=== PATIENT | male | born 1985 | race African-American/Black ===

== ENCOUNTER 2016-09-18 13:45 | Emergency (ER) | payer OTHER ==
[2016-09-18 13:58] VITALS: BP 140/69; PULSE 66; TEMP 98.1; BMI 27.2
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
== END 2016-09-18 16:29 | disposition home or self-care (01) ==
LOC: JERFT 13:45
PROC: 2W39X1Z Immobilization of Left Upper Extremity using Splint (ICD-10-PCS; principal; 2016-09-18)
DX: S42.342A Displaced spiral fracture of shaft of humerus, left arm, initial encounter for closed fracture (principal); Z87.81 Personal history of (healed) traumatic fracture; Y04.0XXA Assault by unarmed brawl or fight, initial encounter; Y93.89 Activity, other specified; Y92.89 Other specified places as the place of occurrence of the external cause; Y99.8 Other external cause status
CPT/HCPCS: 29105; 73060-TC-LT; 99281-25

== ENCOUNTER 2019-04-25 01:20 | Emergency (ER) | payer OTHER ==
[2019-04-25 01:31] VITALS: BP 137/78; PULSE 80; TEMP 98.2; BMI 25.1
[2019-04-25] MEDS ORDERED: CEPHALEXIN MONOHYDRATE 500 MG CAPSULE (UD) PO ONE (01:44)
[2019-04-25] MEDS ORDERED: CEPHALEXIN MONOHYDRATE 500 MG CAPSULE (UD) ONE (01:46)
--- NOTE | 2019-04-25 01:47 | PDOC ---
History of Present Illness - General Chief Complaint: Pain, Acute Stated Complaint: TESTICULAR PAIN X 3 DAYS Time Seen by Provider: 04/25/19 01:26 History Source: Patient - History of Present Illness Initial Comments: 04/25/19 01:47 ingrown hair x 3 days has been applying antibacterial cream hx of same, 1 year ago, responded to abx 04/25/19 01:49 sexual hx: monogomous with female partner no other similar lesions Timing/Duration: reports: getting worse Severity: Yes: moderate Location: reports: genitalia Respiratory Risk Factors: reports: other (ingrown nail) Associated Symptoms: denies: fever, paresthesia Past History - Past Medical History Allergies/Adverse Reactions: Allergies Allergy/AdvReac Type Severity Reaction Status Date / Time No Known Allergies Allergy Verified 04/25/19 01:24 Home Medications: Ambulatory Orders Cephalexin [Keflex] 500 mg PO QID #28 capsule 04/25/19 Ibuprofen [Motrin -] 600 mg PO TID PRN #21 tablet 04/25/19 COPD: No Diabetes: No - Psycho Social/Smoking Cessation Hx Smoking History: Never smoked Have you smoked in the past 12 months: No Number of Cigarettes Smoked Daily: 6 Information on smoking cessation initiated: No Hx Alcohol Use: No Drug/Substance Use Hx: Yes (WEED DAILY) Review of Systems - Review of Systems All Other Systems: Reviewed and Negative *Physical Exam - Vital Signs Last Vital Signs Temp Pulse Resp BP Pulse Ox 98.2 F 80 16 137/78 99 04/25/19 01:26 04/25/19 01:26 04/25/19 01:26 04/25/19 01:26 04/25/19 01:26 - Physical Exam General Appearance: Yes: Nourished Male Genitalia: positive: normal genitalia, other (scrotal ulceration with induration and fluctuence). negative: testicular tenderness, testicular mass Lymphatic: negative: Adenopathy Medical Decision Making - Medical Decision Making 04/25/19 01:51 ulceration with induration and fluctuence unable to express pus abx analgesia ? is this a STI--odd location, hx not consistent PCP fu in 2 days for re-evaluation (Return to Ed otherwise) Discharge - Discharge Information Problems reviewed: Yes Clinical Impression/Diagnosis: Cellulitis Qualifiers: Site of cellulitis: unspecified site Qualified Code(s): L03.90 - Cellulitis, unspecified Condition: Stable - Additional Discharge Information Prescriptions: Cephalexin [Keflex] 500 mg PO QID #28 capsule - Follow up/Referral - Patient Discharge Instructions Patient Printed Discharge Instructions: DI for Cellulitis -- Adult Additional Instructions: Please followup with your doctor if it does not improve within two days - Post Discharge Activity
[2019-04-25] MEDS ORDERED: IBUPROFEN 600 MG TABLET (FP) PO ONE ×2 (01:48→01:49)
== END 2019-04-25 01:52 | disposition home or self-care (01) ==
LOC: FER 01:20
DX: L03.90 Cellulitis, unspecified (principal); F17.210 Nicotine dependence, cigarettes, uncomplicated
CPT/HCPCS: 99281-25

== ENCOUNTER 2021-09-04 23:27 | Emergency (ER) | payer OTHER ==
[2021-09-04 23:35] VITALS: BMI 25.1
[2021-09-04 23:38] VITALS: BP 130/78; PULSE 88; TEMP 99.4
[2021-09-04] MEDS ORDERED: CEPHALEXIN MONOHYDRATE 500 MG CAPSULE (UD) PO ONE (23:54)
[2021-09-05] MEDS ORDERED: CEPHALEXIN MONOHYDRATE 500 MG CAPSULE (UD) ONE (00:02)
== END 2021-09-05 00:05 | disposition home or self-care (01) ==
LOC: FER 23:27
DX: N49.2 Inflammatory disorders of scrotum (principal)
CPT/HCPCS: 99283-25